=== PATIENT | male | born 1955 | race Caucasian/White ===

== ENCOUNTER 2022-06-26 15:40 | Emergency (ER) | payer OTHER ==
[2022-06-26 16:08] VITALS: BP 124/76; PULSE 88; RESP 16; TEMP 97.6; BMI 26.4
[2022-06-26] MEDS ORDERED: IBUPROFEN 400 MG TABLET (FP) PO ONE ×2 (16:37→16:41)
== END 2022-06-26 17:15 | disposition home or self-care (01) ==
LOC: FER 15:40
DX: S42.025A Nondisplaced fracture of shaft of left clavicle, initial encounter for closed fracture (principal); V18.0XXA Pedal cycle driver injured in noncollision transport accident in nontraffic accident, initial encounter
CPT/HCPCS: 73030-TC-LT-FY; 99283-25

== ENCOUNTER 2022-07-14 07:35 | Day surgery (SDC) | payer OTHER ==
[2022-07-11 12:35] VITALS: BMI 26.4
[2022-07-14] MEDS ORDERED: SUCCINYLCHOLINE CHLORIDE 200 MG/10 ML SYRINGE ONE (08:09)
[2022-07-14] MEDS ORDERED: PROPOFOL 40 ML ONE (08:09)
[2022-07-14] MEDS ORDERED: ROCURONIUM BROMIDE 50 MG/5 ML SYRINGE ONE (08:10)
[2022-07-14] MEDS ORDERED: MIDAZOLAM HCL 2 MG/2 ML SINGLE DOSE VIAL ONE ×2 (08:10→08:36)
[2022-07-14] MEDS ORDERED: LIDOCAINE HCL 1%, 10 MG/ML (20ML VIAL) ONE (08:12)
[2022-07-14] MEDS ORDERED: EPINEPHrine/PF 1 MG/1 ML (1:1,000) AMPULE ONE (08:12)
[2022-07-14] MEDS ORDERED: BUPIVACAINE HCL 50 ML ONE (08:12)
[2022-07-14] MEDS ORDERED: ROPIVACAINE HCL/PF 100 MG/20 ML VIAL ONE (08:37)
[2022-07-14] MEDS ORDERED: DEXAMETHASONE SOD PHOSPHATE 10 MG/1 ML VIAL ONE (08:37)
[2022-07-14] MEDS ORDERED: ONDANSETRON 4 MG/2 ML VIAL IVPUSH PRN (08:53)
[2022-07-14] MEDS ORDERED: oxyCODONE HCL 5 MG TABLET PO PRN (08:53)
[2022-07-14] MEDS ORDERED: LACTATED RINGERS SOLUTION 1,000 ML IV SCH (09:00)
[2022-07-14] MEDS ORDERED: ceFAZolin SODIUM 1 GM VIAL ONE (09:40)
[2022-07-14] MEDS ORDERED: TRANEXAMIC ACID 1000 MG/10 ML VIAL ONE (09:42)
[2022-07-14] MEDS ORDERED: DEXAMETHASONE SOD PHOSPHATE 4 MG/1 ML VIAL ONE (09:45)
[2022-07-14] MEDS ORDERED: ONDANSETRON 4 MG/2 ML VIAL ONE (09:45)
[2022-07-14] MEDS ORDERED: PHENYLEPHRINE HCL 10 MG/1 ML SINGLE DOSE VIAL ONE (09:47)
[2022-07-14] MEDS ORDERED: PROPOFOL 20 ML ONE (12:06)
[2022-07-14 14:11] VITALS: PULSE 78; RESP 20; TEMP 97.8
[2022-07-14 15:24] VITALS: BP 133/72
== END 2022-07-14 14:40 | disposition home or self-care (01) ==
LOC: FASU 07:35
PROVIDERS: ATTEND Orthopaedic Surgery Sports Medicine
PROC: 0PSB04Z Reposition Left Clavicle with Internal Fixation Device, Open Approach (ICD-10-PCS; principal; 2022-07-14 10:03)
DX: S42.022A Displaced fracture of shaft of left clavicle, initial encounter for closed fracture (principal); X58.XXXA Exposure to other specified factors, initial encounter; Y92.9 Unspecified place or not applicable; Y93.9 Activity, unspecified
CPT/HCPCS: 23515; C1713; 73000-TC-LT-FY; 94760; J1100

== ENCOUNTER 2022-08-02 13:07 | Emergency (ER) | payer OTHER ==
[2022-08-02 13:16] VITALS: RESP 18; TEMP 97.9; BMI 27.1
[2022-08-02 14:06] LABS: HEMATOCRIT 40.2 % (35.4-49); HEMOGLOBIN 14.3 G/dL (11.7-16.9); MCH 33.1 pg (25.7-33.7); MCHC 35.5 g/dl (32.0-35.9); MEAN PLT VOLUME 8.2 fl (7.5-11.1); RBC 4.32 10^6/uL (4.00-5.60); WHITE BLOOD COUNT 6.4 10^3/uL (4.0-10.8)
[2022-08-02 14:07] LABS: INR 1.05 (0.83-1.09); PROTHROMBIN TIME (PATIENT) 12.1 SEC (9.7-13.0)
[2022-08-02 14:09] LABS: ACTIVATED PTT 33.3 SECONDS (25.2-36.5); PLATELET ESTIMATE ADEQUATE
[2022-08-02 14:25] LABS: CALCIUM 9.2 mg/dl (8.5-10); CREATININE 1.1 mg/dl (0.55-1.3)
[2022-08-02] MEDS ORDERED: SODIUM CHLORIDE 0.9% 500 ML INFUS.BAG IV ONE (14:38)
[2022-08-02 15:51] VITALS: BP 133/79; PULSE 75
== END 2022-08-02 16:00 | disposition home or self-care (01) ==
LOC: FER 13:07
DX: R06.02 Shortness of breath (principal)
CPT/HCPCS: 36415; 71275-TC; 80048; 85025; 85610; 85730; 93005; 99285-25; Q9967

== ENCOUNTER 2024-01-19 04:24 | Emergency (ER) | payer OTHER, MEDICARE ==
[2024-01-19 04:35] VITALS: BP 156/88; PULSE 71; RESP 16; TEMP 97.7; BMI 27.1
[2024-01-19] MEDS: SODIUM CHLORIDE 1,000 ML IV ONE (05:25)
[2024-01-19] MEDS ORDERED: KETOROLAC TROMETHAMINE 30 MG/1 ML VIAL ONE (05:51)
[2024-01-19] MEDS: KETOROLAC TROMETHAMINE 30 MG/1 ML VIAL IVPUSH ONE (05:57)
[2024-01-19 07:21] LABS: HEMATOCRIT 29.4 % (35.4-49); HEMOGLOBIN 9.8 GM/dL (11.7-16.9); MCH 31.6 pg (25.7-33.7); MCHC 33.2 g/dl (32.0-35.9); MEAN CELL VOLUME 95.2 fl (80-96); MEAN PLT VOLUME 7.4 fl (7.5-11.1); PLATELET COUNT 146 10^3/uL (134-434); RBC 3.09 M/mm3 (4.00-5.60); RDW 16.6 % (11.9-15.9); WHITE BLOOD COUNT 28.9 K/mm3 (4.0-10.0)
[2024-01-19 08:10] LABS: ALBUMIN 3.1 g/dl (3.4-5.0); BILIRUBIN,TOTAL 0.3 mg/dL (0.2-1); BLOOD UREA NITROGEN 16.9 mg/dL (7-18); CALCIUM 8.8 mg/dL (8.5-10.1); CREATININE 0.9 mg/dL (0.55-1.3); MAGNESIUM 2.4 mg/dL (1.8-2.4); POTASSIUM 3.4 mmol/L (3.5-5.1)
== END 2024-01-19 08:26 | disposition left against medical advice (07) ==
LOC: FER 04:24
PROC: 3E0333Z Introduction of Anti-inflammatory into Peripheral Vein, Percutaneous Approach (ICD-10-PCS; principal; 2024-01-19)
PROC: 3E0337Z Introduction of Electrolytic and Water Balance Substance into Peripheral Vein, Percutaneous Approach (ICD-10-PCS; 2024-01-19)
DX: R07.81 Pleurodynia (principal); R06.02 Shortness of breath
CPT/HCPCS: 36415; 80053; 82550; 82553; 83735; 84100; 84484; 85027; 85379; 99284-25